=== PATIENT | female | born 1970 | race Asian ===

== ENCOUNTER → 2020-08-07 12:01 | Outpatient (CLI) | payer OTHER, SELFPAY ==
--- NOTE | 2020-08-07 14:44 | DI.MRI.S_ITS ---
PROCEDURE: MR PELIS WO/W CON INDICATIONS: Anal polyp TECHNIQUE: Coronal HASTE, sagittal T2 FSE, axial T1 FSE, axial and coronal nonbreath-hold T2 FSE. Axial dynamic VIBE during administration of contrast. Post-contrast axial and coronal VIBE/2-D FLASH with fat saturation from the iliac crests to the symphysis. Optional diffusion weighted imaging and ADC may be performed. COMPARISON: None. FINDINGS: Image quality: There is motion artifact slightly limiting evaluation.. Bowel and peritoneum: No discrete anal mass identified. In addition, no definite mass is identified within rectosigmoid colon. No evidence of pericolonic extramural invasion. Visualized bowel loops within the lower abdomen and pelvis are normal in caliber and wall thickness. A small amount of intraperitoneal free fluid is demonstrated in the pelvis which appears within physiologic limits. Genitourinary system: Bladder wall is normal in thickness. Distal ureters are non distended. Uterus and ovaries: The uterus appears within normal size limits. The junctional zone is ill-defined within the uterine fundus. There is also ill-defined T2 hypointensity within the fundal myometrium without a discrete mass. This demonstrates generalized myometrial enhancement following contrast administration. An IUD is demonstrated extending into the fundus. There is a thin walled right ovarian cyst measuring up to 3.8 cm without solid internal enhancing components likely representing a follicular cyst. A smaller simple cyst is demonstrated within the left ovary, measuring up to 1.5 cm. Nodes and vessels: No pathologic pelvic or inguinal adenopathy by size criteria. Iliac vessels are normal in caliber. Soft tissues: No inguinal hernias. Bones: Marrow is normal in overall signal. IMPRESSION: 1. No discrete anal or rectal mass visualized. No evidence of extramural pericolonic mass invasion. 2. No pelvic lymphadenopathy. 3. Ill-defined T2 hypointensity and enhancement of the myometrium in the uterine fundus. The findings are nonspecific but raise the possibility of adenomyosis. 4. Bilateral simple ovarian cysts, measuring up to 3.8 cm on the right likely representing follicular cysts. Dictated by: Chip Rivas M.D. on 08/07/2020 at 16:03 Approved by: Chip Rivas M.D. on 08/07/2020 at 16:12
== END ==
PROVIDERS: Referring Provider Surgery; Visit Provider Surgery
DX: K62.0 Anal polyp (principal); N83.202 Unspecified ovarian cyst, left side; N83.201 Unspecified ovarian cyst, right side; R93.89 Abnormal findings on diagnostic imaging of other specified body structures
CPT/HCPCS: 72197; A9579

== ENCOUNTER → 2022-08-04 08:27 | Outpatient (CLI) | payer OTHER, SELFPAY ==
--- NOTE | 2022-08-04 | DI.NM.S_ITS ---
PROCEDURE: NM UPTAKE AND SCAN RADIOPHARMACEUTICAL: 380 ?Ci I-123 sodium iodide by mouth. INDICATIONS: Thyrotoxicosis, unspecified without thyrotoxic cri TECHNIQUE: I-123 sodium iodide was administered orally. Anterior neck images were obtained, and iodine uptake by the thyroid gland calculated using neurological surgeon's software. COMPARISON: None. FINDINGS: Morphology: There is significant asymmetry of the thyroid lobes, with relative enlargement of the left lobe and hypoplasia of the right lobe. There is a focus of increased radiotracer uptake at the superior aspect of the thyroid isthmus. Uptake: 6 hour thyroid uptake is 13 ; normal ranges are from 6-18%. 24 hour thyroid uptake is 21 ; normal ranges are from 10-30%. IMPRESSION: 1. Normal thyroid uptake. 2. Atypical thyroid uptake as described above. Initial further assessment with ultrasound is recommend. Dictated by: Kurt Quiñones M.D. on 08/05/2022 at 9:54 Transcribed by: SARAH on 08/05/2022 at 10:00 Approved by: Kurt Quiñones M.D. on 08/05/2022 at 16:15
== END ==
PROVIDERS: PCP Nurse Practitioner Family; Referring Provider Nurse Practitioner Family; Visit Provider Nurse Practitioner Family
DX: E05.90 Thyrotoxicosis, unspecified without thyrotoxic crisis or storm (principal); R00.2 Palpitations
CPT/HCPCS: 78014; A9516

== ENCOUNTER → 2022-08-05 06:44 | Outpatient (CLI) | payer OTHER, SELFPAY ==
--- NOTE | 2022-08-05 | DI.US.S_ITS ---
PROCEDURE: US ABDOMEN LIMITED INDICATIONS: ABORMAL LEVELS OF SERUM ENZYMES TECHNIQUE: Real-time scanning was performed of the abdominal and retroperitoneal organs, with image documentation. COMPARISON: None. FINDINGS: Liver: The liver measures 12.2 cm in length and demonstrates normal echotexture. Gallbladder: The gallbladder wall measures 2.0 mm in diameter. No stones, sludge, pericholecystic fluid, or sonographic Mckeon sign. Biliary ducts: Intrahepatic bile ducts are non-dilated. Extrahepatic bile duct caliber measures 2.1 mm. Normal is 6-7 mm or less in diameter, or 10 mm or less post-cholecystectomy. Pancreas: Visualized portions of the pancreas are sonographically normal. IMPRESSION: 1. No cholelithiasis or findings to suggest choledocholithiasis or acute cholecystitis. Dictated by: Do Medina M.D. on 08/05/2022 at 15:50 Approved by: Do Medina M.D. on 08/05/2022 at 15:51
== END ==
PROVIDERS: PCP Nurse Practitioner Family; Referring Provider Nurse Practitioner Family; Visit Provider Nurse Practitioner Family
DX: R74.8 Abnormal levels of other serum enzymes (principal)
CPT/HCPCS: 76705